=== PATIENT | female | born 1960 | race Caucasian/White ===

== ENCOUNTER → 2018-01-29 | Outpatient (CLI) | payer OTHER | LOC: M.RAD 09:36 | DX: J44.0 Chronic obstructive pulmonary disease with (acute) lower respiratory infection (principal); J20.9 Acute bronchitis, unspecified ==

== ENCOUNTER 2018-07-21 00:25 | Emergency (ER) | payer OTHER ==
[~2018-07-21] VITALS: Ht 154.9 cm; Wt 76.2 kg
[2018-07-21] MEDS ORDERED: LIPITOR10 MG PO (00:42)
[2018-07-21] MEDS ORDERED: OMEPRAZOLE20 MG PO (00:43)
[2018-07-21] MEDS ORDERED: CELEBREX 200 M200 M1 PO (00:43)
[2018-07-21] MEDS ORDERED: CLARITIN10 MG PO (00:43)
[2018-07-21] MEDS ORDERED: MUCINEX600 MG PO (00:44)
[2018-07-21] MEDS ORDERED: SPIRIVA INH (00:45)
[2018-07-21] MEDS ORDERED: MELATONIN5 M1 PO (00:45)
[2018-07-21] MEDS ORDERED: NORCO 7.5-3251 EACH PO (01:22)
[2018-07-21] MEDS ORDERED: FLEXERIL PO (01:22)
[2018-07-21 01:28] VITALS: BP 137/80
== END 2018-07-21 01:28 | disposition home or self-care (01) ==
LOC: M.ERS 00:25
DX: S29.011A Strain of muscle and tendon of front wall of thorax, initial encounter (principal); F17.200 Nicotine dependence, unspecified, uncomplicated; J44.9 Chronic obstructive pulmonary disease, unspecified; Z88.1 Allergy status to other antibiotic agents; Z88.8 Allergy status to other drugs, medicaments and biological substances; Z90.710 Acquired absence of both cervix and uterus; X58.XXXA Exposure to other specified factors, initial encounter; Y92.89 Other specified places as the place of occurrence of the external cause; Y93.89 Activity, other specified; Y99.8 Other external cause status

== ENCOUNTER → 2018-08-06 | Outpatient (CLI) | payer OTHER ==
[~2018-08-06] MED LIST: CELEBREX 200 M200 M1 PO; CLARITIN10 MG PO; FLEXERIL PO; LIPITOR10 MG PO; MELATONIN5 M1 PO; MUCINEX600 MG PO; NORCO 7.5-3251 EACH PO; OMEPRAZOLE20 MG PO; SPIRIVA INH
== END ==
LOC: M.ULTRA 10:06
DX: Z12.31 Encounter for screening mammogram for malignant neoplasm of breast (principal); N60.11 Diffuse cystic mastopathy of right breast; N60.12 Diffuse cystic mastopathy of left breast

== ENCOUNTER 2018-10-12 03:09 | Emergency (ER) | payer OTHER ==
[~2018-10-12] VITALS: Ht 157.5 cm; Wt 77.1 kg
[2018-10-12] MEDS ORDERED: PREDNISONE 20 M20 M1 PO (03:20)
[2018-10-12] MEDS ORDERED: ZPAK PO (03:20)
[2018-10-12 03:54] VITALS: BP 140/58
--- NOTE | 2018-10-12 14:09 | EKG ---
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 : 1960 Requested By: Efren Finnegan Order Number: [id number] MD: Yusef Araujo Measurements Intervals [place] Rate: 103 P: 70 NE: 154 QRS: 65 QRSD: 85 T: 55 QT: 328 QTc: 430 Interpretive Statements Sinus tachycardia Low voltage, precordial leads Baseline wander in lead(s) II,aVR,aVF No previous ECG available for comparison Electronically Signed On 10-12-2018 14:09:21 CDT by Yusef Araujo [email or web address] <ELECTRONICALLY SIGNED> By: Yusef Araujo MD, [facility] 10/12/18 1409 [id number] Yusef Araujo MD, FAC /EPI
== END 2018-10-12 03:55 | disposition home or self-care (01) ==
LOC: M.ERS 03:09
DX: J44.1 Chronic obstructive pulmonary disease with (acute) exacerbation (principal); Z88.8 Allergy status to other drugs, medicaments and biological substances; Z88.1 Allergy status to other antibiotic agents; Z90.710 Acquired absence of both cervix and uterus

== ENCOUNTER → 2018-12-11 | Outpatient (CLI) | payer OTHER ==
[~2018-12-11] MED LIST changes: +PREDNISONE 20 M20 M1 PO; +ZPAK PO
== END ==
LOC: M.ULTRA 13:57
DX: E04.1 Nontoxic single thyroid nodule (principal); Z88.8 Allergy status to other drugs, medicaments and biological substances

== ENCOUNTER → 2018-12-18 | Outpatient (CLI) | payer OTHER | LOC: M.MRI 08:30 | DX: M67.461 Ganglion, right knee (principal); G89.29 Other chronic pain ==

== ENCOUNTER 2019-04-24 07:19 | Inpatient (IN) | payer OTHER ==
[~2019-04-24] VITALS: Ht 157.5 cm; Wt 79.4 kg
[~2019-04-24 07:19] MED LIST changes: -OMEPRAZOLE20 MG PO; +PROTONIX40 M2 PO
[2019-04-24 07:25] VITALS: BP 174/108
[2019-04-24 08:08] LABS: ABSOLUTE BASOPHILS 0.1 thou/uL (0.0-0.2); ABSOLUTE EOSINOPHILS 0.4 thou/uL (0.0-0.7); ABSOLUTE LYMPHOCYTES 2.2 thou/uL (0.8-5.3); ABSOLUTE MONOCYTES 0.5 thou/uL (0.0-1.2); BASOPHILS 1.4 %; EOSINOPHILS 4.3 %; HEMATOCRIT 43.2 % (37.0-47.0); HEMOGLOBIN 14.4 gm/dL (12.0-15.0); LYMPHOCYTES 21.2 %; MCH 29.2 pg (26.0-34.0); MCHC 33.5 g/dL (28.0-37.0); MCV 87.3 fL (80.0-100.0); MONOCYTES 4.7 %; NUCLEATED RBCS 0 /100WBC; PLATELET COUNT* 273 thou/uL (150-400); POLYS 68.4 %; RBC 4.95 mil/uL (4.20-5.00); RDW-CV 14.4 % (10.5-14.5); WBC 10.2 thou/uL (4.0-11.0)
[2019-04-24 08:14] LABS: CREATININE 0.9 mg/dL (0.6-1.3); POTASSIUM 3.8 mmol/L (3.5-5.1)
[2019-04-24 08:39] LABS: ALBUMIN 3.3 g/dL (3.4-5.0); MAGNESIUM 1.9 mg/dL (1.8-2.4); TOTAL BILIRUBIN 0.5 mg/dL (<0.1-1.0); TOTAL PROTEIN 6.5 g/dL (6.4-8.2)
[2019-04-24 13:56] VITALS: BP 139/81
--- NOTE | 2019-04-24 17:02 | NUR ---
SPOKE WITH DR ATKINSON AND HE ELECTRONICLY SENT S[facility]. PT UNDERSTANDS TO TAKE 1.5 TABS OF HER HOME MEDICATION BID PER DR. ATKINSON.
[2019-04-24 20:00] VITALS: BP 143/89
[2019-04-24] MEDS ORDERED: STIOLTO RESPIMAT4 GM IH (21:55)
[2019-04-25] VITALS: BP 154/74
[2019-04-25 04:00] VITALS: BP 134/79
--- NOTE | 2019-04-25 05:05 | NUR ---
RECEIVED REPORT FROM ED RN. PT TRANSFERRED TO 212. PT A&OX4. VSS. TELEGRAPH SERVICE CLERK IN PLACE. ADMISSION HISTORY & PHYSICAL ASSESSMENT COMPLETED AND CHARTED. PT ONRA. PT TRACING SR ON TELE. PT UPADLIB TO RESTROOM. DENIES ANY PAIN OR DISCOMFORT. INSTRUCTED ON NPO POST MIDNIGHT FOR CARDIO CONSULT. COMMUNICATES UNDERSTANDING. PT ABLE TO SLEEP WELL ON BED. CALL LIGHT WITHIN REACH.
[2019-04-25 08:00] VITALS: BP 132/78
[2019-04-25] MEDS ORDERED: IPRAT-ALBUT 0.5-3 ML INH (09:47)
[2019-04-25] MEDS ORDERED: PROAIR HFA8.5 GM INH (09:47)
--- NOTE | 2019-04-25 12:30 | EKG ---
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 : 1960 Requested By: Corey Perez Order Number: [id number] MD: Clem Ricci Measurements Intervals [place] Rate: 92 P: 69 KS: 149 QRS: 69 QRSD: 84 T: 69 QT: 381 QTc: 472 Interpretive Statements Sinus rhythm Low voltage, extremity and precordial leads Baseline wander in lead(s) V4 Compared to ECG 10/12/2018 03:22:22 Sinus tachycardia no longer present Electronically Signed On 04-25-2019 12:29:34 WAREHOUSER by Clem Ricci [email or web address] <ELECTRONICALLY SIGNED> By: Clem Ricci MD, [facility] 04/25/19 1229 Clem Ricci MD, [facility] /EPI
[2019-04-25 12:31] VITALS: BP 153/82
[2019-04-25 16:00] VITALS: BP 147/81
--- NOTE | 2019-04-25 17:35 | CARDNUC ---
[place] [address] CARDIAC NUCLEAR IMAGING REPORT Name: SHEREE LARSON Room: [address] IN [facility]#: [id number] Admission: 04/24/19 Attend Phys: Yoandy Tavarez Discharge: Date of : 60 Date of Service: 04/25/19 1734 Report #: [id number] THIS REPORT FOR: //name// APPROVED REPORT Imaging Protocol: Rest Tc-99m/Stress Tc-99m 1 day Study performed: 04/24/2019 15:58:00 Indication: Chest pain, Dyspnea Patient Location: In-Patient Room #: 212 Stress Tech: Linsey Smart Stress Nurse: Maria Ines Garcia RN NM Tech:HUMBERTO Edwrads Ht: 5 ft 2 in Wt: 174 lbs BSA: 1.80 m2 BMI: 31.82 Medical History Medical History: COPD Medications: asa-325, ntg Allergies: codiene, hydrocodone, clavulinic acid amoxil Cardiac Risk Factors: age, Current Smoker Exercise History: Sedentary Resting Data Rest SPECT myocardial perfusion imaging was performed in supine position 30 minutes following the intravenous injection of 9.8 mCi of Tc-99m Sestamibi. Time of rest injection: 1210 Date: 04/25/2019 The images were gated to evaluate regional wall motion and calculate left ventricular ejection fraction. Administration Route: IV Pharmacologic Stress Pharmacologic stress test was performed by injecting Regadenoson 0.4 mg IV push over 10-15 seconds immediately followed by the intravenous injection of 32.1 mCi of Tc-99m Sestamibi. Time of stress injection: 1330 Date: 04/25/2019 Administration Route: IV Gated Stress SPECT was performed 40 minutes after stress injection. The images were gated to evaluate regional wall motion and calculate left ventricular ejection fraction. Prone [place] [address] CARDIAC NUCLEAR IMAGING REPORT Name: SHEREE LARSON Room: [address] IN [facility]#: [id number] Admission: 04/24/19 Attend Phys: Yoandy Tavarez Discharge: Date of : 60 Date of Service: 04/25/19 1734 Report #: [id number] Stress Test Details Stress Test: Pharmacologic stress testing performed using 0.4 mg of regadenoson per 5 mL given IV over 10 seconds. Reason for pharmacologic stress test: physical limitation. 60 mg caffeine given for dyspnea. HR Max Heart Rate (APMHR): 161 bpm Resting HR: 104 bpm Target HR (85% APMHR): 136 bpm Max HR Achieved: 118 bpm % of APMHR: 73 Recovery HR: 110 bpm BP Resting BP: 126/82 mmHg Max BP: 127/87 mmHg Recovery BP: 145/90 mmHg ECG Resting ECG: Sinus Rhythm Stress ECG: Sinus Tachycardia ST Change: None Arrhythmia: None Recovery ECG: sinus tachycardia Recovery ST Change: None Recovery Arrhythmia: None Clinical Reason for Termination: Completed protocol Exercise duration: 0 min sec Exercise capacity: 1 METs The patient tolerated Lexiscan infusion without significant cardiac symptoms. Nurse Comments pt pretreated foor nausea with zofran 4 mg ivp. pt too soa to wallk on treadmill Stress ECG Conclusion The baseline EKG show sinus rhythm with no significant ST segment or T-wave abnormalities. EKGs obtained during and post Lexiscan infusion show sinus rhythm and sinus tachycardia with no significant ST segment changes when compared baseline. There were no stress-induced arrhythmias. Study Quality Study: Good Artifact: [place] [address] CARDIAC NUCLEAR IMAGING REPORT Name: SHEREE LARSON Room: [address]#: [id number] Admission: 04/24/19 Attend Phys: Yoandy Tavarez Discharge: Date of : 60 Date of Service: 04/25/19 1734 Report #: [id number] Study Data At rest, the left ventricular ejection fraction was 90%.. Post stress, the left ventricular ejection was 90%.. Perfusion Perfusion images obtained at rest and post Lexiscan stress show uniform uptake of the radioisotope throughout the myocardium without defect. Wall Motion Global wall motion is vigorous without focal wall motion abnormality. Nuclear Conclusion ECG Findings: negative for ischemia Clinical Findings: negative for ischemia Nuclear Findings: negative for ischemia Exercise Capacity: not assessed Left Ventricular Function: normal Risk Study: low Myocardial perfusion images show no defect to suggest infarct or ischemia. Left ventricular systolic function is normal on gated studies. This is a low risk study. <Conclusion> The baseline EKG show sinus rhythm with no significant ST segment or T-wave abnormalities. EKGs obtained during and post Lexiscan infusion show sinus rhythm and sinus tachycardia with no significant ST segment changes when compared baseline. There were no stress-induced arrhythmias. <ELECTRONICALLY SIGNED> By: Jose Benavides MD, FACC 04/25/19 1734 1734 1734 Jose Benavides MD, FACC /INF
--- NOTE | 2019-04-25 19:11 | NUR ---
ASSUMED PT CARE AT 0700, A&O X4, UP AD ROSA, COUNTER MOLDER TRACING SINUS RHYTHM/SINUS TACHY, FULL ASSESSMENT CHARTED. PT COMPLETED NUC MED STRESS TEST THIS SHIFT, RESULTS CHARTED. HOURLY ROUNDING COMPLETED.
[2019-04-25 20:00] VITALS: BP 129/80
[2019-04-26] VITALS: BP 145/84
--- NOTE | 2019-04-26 03:11 | NUR ---
ASSUMED PATIENT CARE AT 1900. ASSESSMENT COMPLETED CHARTED. PATIENT IS SR/ST ON THE MONITOR. HOURLY ROUNDING IN PLACE FOR PATIENT SAFETY. CLWR.
[2019-04-26 04:00] VITALS: BP 145/89
[2019-04-26 08:00] VITALS: BP 122/81
[2019-04-26 11:34] VITALS: BP 140/80
[2019-04-26 16:30] VITALS: BP 139/83
[2019-04-26 20:00] VITALS: BP 135/71
[2019-04-27] VITALS: BP 124/76
[2019-04-27 04:00] VITALS: BP 113/73
[2019-04-27 08:00] VITALS: BP 135/65
[2019-04-27] MEDS ORDERED: LEVAQUIN 500 M500 M3 PO (11:42)
[2019-04-27] MEDS ORDERED: PREDNISONE 10 M10 MG PO (11:43)
[2019-04-27 12:23] VITALS: BP 155/77
--- NOTE | 2019-04-27 13:09 | NUR ---
ASSUMED PT CARE REPORT RECEIVED FROM NURSE PT IS AOX4 ON RA SINUS TACHY ON THE SEAFOOD SPECIALIST. NO COMPLAINT. PO MEDICINE GIVEN. IV ABX HANGED ORDERED. DISCAHRGE ORDERED. DC INSTRUCTION GIVEN. IV LINE REMOVED. HEART MONITOR RETRIEVED. PT LEFT FLOOR ACCOMPANIED BY THIS NURSE AND PT .
[2019-04-27 13:10] VITALS: BP 155/77
== END 2019-04-27 13:00 | disposition home or self-care (01) | DRG 189 ==
LOC: M.ERS 07:19 → M.TBA-ER 09:48 → M.2W 09:48
PROVIDERS: Emergency Medicine Emergency Medical Services; ADMIT Internal Medicine
DX: J96.01 Acute respiratory failure with hypoxia (principal); J44.1 Chronic obstructive pulmonary disease with (acute) exacerbation; I24.9 Acute ischemic heart disease, unspecified; F17.210 Nicotine dependence, cigarettes, uncomplicated; E03.9 Hypothyroidism, unspecified; Z90.49 Acquired absence of other specified parts of digestive tract; Z90.710 Acquired absence of both cervix and uterus; Z79.899 Other long term (current) drug therapy; Z88.1 Allergy status to other antibiotic agents; Z88.5 Allergy status to narcotic agent

== ENCOUNTER → 2020-03-03 | Outpatient (CLI) | payer OTHER ==
[~2020-03-03] MED LIST changes: +IPRAT-ALBUT 0.5-3 ML INH; +LEVAQUIN 500 M500 M3 PO; +PREDNISONE 10 M10 MG PO; +PROAIR HFA8.5 GM INH; +STIOLTO RESPIMAT4 GM IH
== END ==
LOC: M.ULTRA 08:45
PROVIDERS: ATTEND Family Medicine
DX: E04.1 Nontoxic single thyroid nodule (principal)

== ENCOUNTER → 2020-03-25 | Outpatient (CLI) | payer OTHER | LOC: M.ULTRA 12:38 | PROVIDERS: ATTEND Family Medicine | DX: R20.0 Anesthesia of skin (principal); R20.9 Unspecified disturbances of skin sensation; F17.210 Nicotine dependence, cigarettes, uncomplicated ==

== ENCOUNTER → 2020-04-01 | Outpatient (CLI) | payer OTHER | LOC: M.ULTRA 09:30 | PROVIDERS: ATTEND Family Medicine | DX: R20.0 Anesthesia of skin (principal); R20.9 Unspecified disturbances of skin sensation; F17.210 Nicotine dependence, cigarettes, uncomplicated ==

== ENCOUNTER 2021-02-12 07:24 | Emergency (ER) | payer OTHER ==
[~2021-02-12] VITALS: Ht 154.9 cm; Wt 71.2 kg
[2021-02-12] MEDS ORDERED: FLEXERIL PO (07:47)
[2021-02-12] MEDS ORDERED: PREDNISONE 20 M20 M1 PO (08:43)
[2021-02-12] MEDS ORDERED: PERCOCET PO (08:43)
[2021-02-12 08:46] VITALS: BP 128/72
== END 2021-02-12 08:47 | disposition home or self-care (01) ==
LOC: M.ERS 07:24
DX: M25.551 Pain in right hip (principal); J44.9 Chronic obstructive pulmonary disease, unspecified; J45.909 Unspecified asthma, uncomplicated; Z90.710 Acquired absence of both cervix and uterus; Z90.49 Acquired absence of other specified parts of digestive tract; Z79.899 Other long term (current) drug therapy; Z88.0 Allergy status to penicillin; Z88.1 Allergy status to other antibiotic agents; Z88.5 Allergy status to narcotic agent